=== PATIENT | female | born 1960 | race Caucasian/White ===

== ENCOUNTER 2019-09-03 11:40 | Emergency (ER) | payer OTHER, SELFPAY ==
--- NOTE | ~2019-09-03 | CT_ITS ---
EXAMINATION: CT abdomen pelvis w con DATE: 09/03/2019 13:05 INDICATION: Left lower quadrant abdominal pain, nausea. History of diverticulitis. TECHNIQUE: Computed tomography (CT) of the abdomen and pelvis was performed without intravenous contr ast. Automated exposure control and iterative reconstruction technique were employed. Exam dose: 122 7.42 mGy-cm total exam DLP. COMPARISON: 10/15/2017 CT abdomen pelvis FINDINGS: The lung bases are clear. Normal heart size. No pericardial or pleural effusion. Small sliding hiatal hernia. Status post cholecystectomy. No bile duct or pancreatic duct dilatation. No hepatic space-occupying mass lesion. Likely benign approximately 2 cm cystic lesion of the spleen. No pancreatic mass lesion, calcificatio n or ductal dilatation. Normal morphology of the adrenal glands. There are 2 small cysts of the right kidney, measuring up to 5 mm. Approximately 3 mm nonobstructing lower pole left renal calculus. No ureteral calculus or hydroureter onephrosis. Normal caliber of the abdominal aorta. No intraperitoneal or retroperitoneal or pelvic mass lesion or adenopathy or ascites. Status post hysterectomy. The urinary bladder is unremarkable. There is diverticulosis of the colon. There is thickening of the colon at the splenic flexure and pro ximal descending colon, with prominent pericolic stranding, thickening of the left anterior pararenal fascia and lateral conal fascia. There are colonic diverticula in this region. The findings are like ly secondary to diverticulitis of the splenic flexure and proximal descending colon. Normal appendix. Diffuse idiopathic skeletal hyperostosis of the lower thoracic spine. Degenerative disease at L5-S1. Prominent degenerative change at the apophyseal joints of the lumbar and lumbosacral spine. IMPRESSION: Diverticulitis of the colon at the splenic flexure and proximal descending colon; no abs cess identified Small right renal cysts Nonobstructing left renal calculus Small sliding hiatal hernia Status post cholecystectomy Nonspecific 2 cm likely benign cystic lesion of the spleen Reviewed, dictated and finalized at [facility]. Reviewed, dictated and finalized at [facility]. IMPRESSION: Diverticulitis of the colon at the splenic flexure and proximal de scending colon; no abscess identified Small right renal cysts Nonobstructing left renal calculus Small sliding hiatal hernia Status post cholecystectomy Nonspecific 2 cm likely benign cystic lesion of the spleen
[2019-09-03 11:43] VITALS: BP 156/92; PULSE 103; RESP 18; TEMP 37.2; O2SAT 98
[2019-09-03 12:25] LABS: Basophils Percent Auto 0.2 % (0.2-1.2); Eosinophils Percent Auto 0.5 % (0-4.4); Hematocrit 37.7 % (37.0-47.0); Hemoglobin 12.5 g/dL (12.0-15.0); Immature Granulocyte Absolute 0.03 K/mm3 (0.00-0.031); Immature Granulocyte Percent A 0.3 % (0-0.5); Lymphocytes Absolute Auto 1.25 K/mm3 (0.9-3.2); Lymphocytes Percent Auto 14.3 % (18.3-44.2); Mean Corpuscular HGB Conc 33.2 g/dl (32-36); Mean Corpuscular Hemoglobin 29.8 pg (26-34); Mean Corpuscular Volume 89.8 fl (80-100); Mean Platelet Volume 10.7 fl (7.4-10.4); Monocytes Absolute Auto 0.5 K/mm3 (0.1-0.6); Monocytes Percent Auto 5.8 % (2.6-8.5); Neutrophils Absolute Auto 6.9 K/mm3 (1.3-6.7); Neutrophils Percent Auto 78.9 % (45.5-73.1); Platelet Count Result 183 k/mm3 (150-375); White Blood Count 8.7 K/mm3 (4.5-10.0)
[2019-09-03 12:30] LABS: Add Urine Microscopic? NO; Appearance Urine Clear (Clear); Bilirubin Urine Negative (Negative); Blood Urine Negative (Negative); Color Urine Yellow (Yellow); Glucose Urine UA Negative (Negative); Ketones Urine Negative (Negative); Leukocyte Esterase Ur Negative LEU/UL (Negative); Nitrate Urine Negative (Negative); Protein Urine Negative (Negative); Specific Grav Ur 1.016 (1.001-1.035); Urobilinogen Urine Negative mg/dL (<2.0)
[2019-09-03] MEDS: SODIUM CHLORIDE 0.9% IV 1,000 ML 999 ML IV CONT (12:40)
[2019-09-03] MEDS: FAMOTIDINE 20 MG/2 ML VIAL IV PUSH (12:41)
[2019-09-03 12:44] LABS: Alanine Aminotransferase 22 U/L (4-35); Albumin Level 4.4 g/dL (3.5-5.1); Alkaline Phosphatase 80 U/L (38-126); Aspartate Amino Transferase 25 U/L (14-36); Bilirubin,Total 0.3 mg/dL (0.2-1.3); Blood Urea Nitrogen 13 mg/dL (7-17); Calcium 8.8 mg/dL (8.4-10.2); Carbon Dioxide 27 mmol/L (22-30); Chloride 103 mmol/L (98-107); Estimated CRCL calculation 115 ml/min; Estimated Glomerular Filt Rate > 60; Glucose 96 mg/dL (65-105); Lipase 36 U/L (23-300); Potassium 3.8 mmol/L (3.4-5.0); Sodium 138 mmol/L (137-145)
[2019-09-03 12:48] VITALS: BP 141/81; PULSE 91; RESP 18; TEMP 36.8; O2SAT 98
--- NOTE | 2019-09-03 14:23 | ED.ABDPAIN ---
HPI - Abdominal Pain General Chief Complaint: Abdominal Pain Stated Complaint: abd pain Time Seen by Provider: 09/03/19 11:44 History of Present Illness HPI narrative: Patient is a 58-year-old female who presents with 1 day duration of left lower abdominal pain noting that she is been off her medications for diverticulitis for 1 week. Patient notes that she has been slightly nauseous but denies fever vomiting rectal bleeding melena diarrhea patient completed a full round of Cipro and Flagyl. And then a week after which she has now had a recurrence of symptoms. Pain is localized to the left lower abdomen does not radiate Related Data Allergies Allergy/AdvReac Type Severity Reaction Status Date / Time levofloxacin Allergy Unknown Unknown Verified 09/03/19 11:47 morphine Allergy Unknown Unknown Verified 09/03/19 11:47 Review of Systems Review of Systems: All systems reviewed & are unremarkable except as noted in HPI and below PMFSH Past Medical History Medical History (Updated 09/03/19 @ 14:26 by Jorje Garcia PA-C) Diverticulitis Multiple sclerosis Family History Family History (Updated 10/20/17 @ 09:57 by DOCTOR UNKNOWN) Other Depression Family history of cardiovascular disease Family history of malignant neoplasm of breast in first degree relative Hypertension Social History Social History Smoking status: Never smoker Alcohol intake: current Gender identity (if verbalized by the patient): Female Exam Narrative: Exam Narrative: GENERAL: Well-appearing, well-nourished, and in no acute distress. HEAD: Normocephalic, atraumatic. EYES: PERRLA and EOMI. ENT: Nares clear, no rhinorrhea or epistaxis. Mucous membranes moist. CHEST: Clear to auscultation. No respiratory distress. No wheezes rales or rhonchi HEART: Regular rate and rhythm. No murmur heard. Normal peripheral pulses. ABDOMEN: Soft, left lower abdominal tenderness no rebound or guarding, nondistended EXTREMITIES: Normal range of motion. No edema. SKIN: Warm, dry, no rash. NEURO: No focal deficits. Alert and oriented x3. Cranial nerves II through XII grossly intact PSYCH: Normal mood and affect. Course Course Emergency Course: Patient in the room aware of case findings treatment plan and diagnosis agreeing to follow-up with primary care and GI services Vital Signs Vital signs: Vital Signs Temperature 98.9 F 09/03/19 11:43 Pulse Rate 103 H 09/03/19 11:43 Respiratory Rate 18 09/03/19 11:43 Blood Pressure 156/92 H 09/03/19 11:43 Pulse Oximetry 98 09/03/19 11:43 Temperature 98.3 F 09/03/19 12:48 Pulse Rate 91 09/03/19 12:48 Respiratory Rate 18 09/03/19 12:48 Blood Pressure 141/81 H 09/03/19 12:48 Pulse Oximetry 98 09/03/19 12:48 MDM - Abdominal Pain MDM Narrative Medical decision making narrative: Patient with uncomplicated diverticulitis in the room hemodynamically stable afebrile nontoxic-appearing no distress felt appropriate for outpatient reevaluation given a GI follow-up as well as advised to follow with primary care patient in the room in no distress has been hydrated and given medications and is resting comfortably in no distress Lab Data Result diagrams: 09/03/19 12:12 09/03/19 12:12 Labs: Lab Results 09/03/19 09/03/19 09/03/19 Range/Units 12:12 12:12 12:12 WBC 8.7 (4.5-10.0) K/mm3 RBC 4.20 (4.2-5.4) M/mm3 Hgb 12.5 (12.0-15.0) g/dL Hct 37.7 (37.0-47.0) % MCV 89.8 (80-100) fl MCH 29.8 (26-34) pg MCHC 33.2 (32-36) g/dl RDW 13.0 (11.5-14.5) % Plt Count 183 (150-375) k/mm3 MPV 10.7 H (7.4-10.4) fl Immature Gran % (Auto) 0.3 (0-0.5) % Neut % (Auto) 78.9 H (45.5-73.1) % Lymph % (Auto) 14.3 L (18.3-44.2) % Gregory % (Auto) 5.8 (2.6-8.5) % Eos % (Auto) 0.5 (0-4.4) % Baso % (Auto) 0.2 (0.2-1.2) % Lymph # (Auto) 1.25 (0
[2019-09-03 15:07] VITALS: BP 138/75; PULSE 73; RESP 18; O2SAT 100
== END 2019-09-03 15:07 | disposition home or self-care (01) ==
PROVIDERS: Emergency Provider Emergency Medicine; PCP Physician Assistant
DX: K57.92 Diverticulitis of intestine, part unspecified, without perforation or abscess without bleeding (principal); G35 Multiple sclerosis; K44.9 Diaphragmatic hernia without obstruction or gangrene; N20.0 Calculus of kidney; D73.4 Cyst of spleen
CPT/HCPCS: 36415; 74177; 80053; 81003; 81025; 83690; 85025; 96361; 96374; 96375; 99284; J0131; J7030; Q9967

== ENCOUNTER 2021-11-02 14:23 | Emergency (ER) | payer BC, MEDICAID, SELFPAY ==
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
[2021-11-02 14:25] VITALS: BP 157/82; PULSE 70; RESP 16; TEMP 36.5; O2SAT 99
--- NOTE | 2021-11-02 15:10 | ECG_ITS ---
Measurements Intervals [place] Rate: 67 P: 23 AK: 188 QRS: 39 QRSD: 104 T: 5 QT: 390 QTc: 414 Interpretive Statements SINUS RHYTHM NORMAL ELECTROCARDIOGRAM NO PREVIOUS ECG AVAILABLE FOR COMPARISON Electronically Signed On 11-02-2021 16:38:11 CDT by Justin Parrish M.D.
[2021-11-02] MEDS: SODIUM CHLORIDE 0.9% IV 1,000 ML 999 ML IV CONT (15:56)
[2021-11-02 15:59] VITALS: BP 144/69; PULSE 66; RESP 18; O2SAT 99
[2021-11-02 16:04] VITALS: BP 160/75; BP 161/73; PULSE 68; PULSE 72
[2021-11-02 16:06] VITALS: BP 141/81; PULSE 78
[2021-11-02 16:08] VITALS: BP 141/81; PULSE 72; RESP 18; O2SAT 100
[2021-11-02 16:17] LABS: Basophils Percent Auto 0.4 % (0.2-1.2); Eosinophils Percent Auto 0.3 % (0-4.4); Hematocrit 35.5 % (37.0-47.0); Hemoglobin 11.3 g/dL (12.0-15.0); Immature Granulocyte Absolute 0.02 K/mm3 (0.00-0.031); Immature Granulocyte Percent A 0.3 % (0-0.5); Lymphocytes Absolute Auto 1.53 K/mm3 (0.9-3.2); Lymphocytes Percent Auto 22.9 % (18.3-44.2); Mean Corpuscular HGB Conc 31.8 g/dl (32-36); Mean Corpuscular Hemoglobin 29.7 pg (26-34); Mean Corpuscular Volume 93.2 fl (80-100); Mean Platelet Volume 11.2 fl (7.4-10.4); Monocytes Absolute Auto 0.4 K/mm3 (0.1-0.6); Monocytes Percent Auto 6.6 % (2.6-8.5); Neutrophils Absolute Auto 4.7 K/mm3 (1.3-6.7); Neutrophils Percent Auto 69.5 % (45.5-73.1); Platelet Count Result 191 k/mm3 (150-375); Red Blood Count 3.81 M/mm3 (4.2-5.4); Red Cell Distribution Width 13.1 % (11.5-14.5); White Blood Count 6.7 K/mm3 (4.5-10.0)
[2021-11-02 16:23] LABS: Alanine Aminotransferase 20 U/L (6-35); Albumin Level 3.7 g/dL (3.5-5.1); Alkaline Phosphatase 68 U/L (38-126); Anion Gap 7 mmol/L (8-16); Aspartate Amino Transferase 23 U/L (14-36); Bilirubin,Total 0.4 mg/dL (0.2-1.3); Blood Urea Nitrogen 17 mg/dL (7-17); Calcium 8.5 mg/dL (8.4-10.2); Carbon Dioxide 26 mmol/L (22-30); Chloride 105 mmol/L (98-107); Estimated CRCL calculation 94 ml/min; Estimated Glomerular Filt Rate > 60; Glucose 101 mg/dL (65-110); Potassium 3.5 mmol/L (3.4-5.0); Sodium 138 mmol/L (137-145)
[2021-11-02 16:31] LABS: INR 1.1; Partial Thromboplastin Time 26.5 SECONDS (22.3-36.8); Prothrombin Time 13.8 Seconds (11.1-14.7)
[2021-11-02 16:35] LABS: Troponin I < 0.012 ng/mL (0.000-0.034)
[2021-11-02 17:01] VITALS: BP 144/69; PULSE 61; RESP 16; O2SAT 98
[2021-11-02 17:05] LABS: Appearance Urine Clear (Clear); Bilirubin Urine Negative (Negative); Color Urine Yellow (Yellow); Glucose Urine UA Negative (Negative); Ketones Urine Negative (Negative); Leukocyte Esterase Ur Negative LEU/UL (Negative); Nitrate Urine Negative (Negative); Protein Urine Negative (Negative); Specific Grav Ur 1.025 (1.001-1.035); Urobilinogen Urine 0.2 mg/dL (<2.0)
[2021-11-02 17:14] LABS: Add Urine Microscopic? YES; Blood Urine Trace-Intact (Negative)
[2021-11-02 17:22] LABS: Mucus Urine Rare /lpf; RBC Urine 0-2 /hpf (0-2); Squamous Epithelial Cell Urine Rare /hpf (Few); WBC Urine 0-3 /hpf
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
== END 2021-11-02 19:00 | disposition home or self-care (01) ==
PROVIDERS: Emergency Provider Emergency Medicine; PCP Physician Assistant
DX: R42 Dizziness and giddiness (principal); S00.93XA Contusion of unspecified part of head, initial encounter; R51.9 Headache, unspecified; G35 Multiple sclerosis; V49.9XXA Car occupant (driver) (passenger) injured in unspecified traffic accident, initial encounter
CPT/HCPCS: 36415; 70450; 80053; 81001; 84484; 85025; 85610; 85730; 93005; 96361; 96365; 99284; J0131; J7030